=== PATIENT | male | born 1960 | race Caucasian/White ===

== ENCOUNTER 2017-09-06 09:43 | Outpatient (CLI) | payer BC ==
--- NOTE | 2017-09-06 11:38 | CT ---
THORACIC SPINE CT NONCONTRAST: Comparison: 03-25-15 Clinical history: Thoracic radiculopathy. FINDINGS: Re-demonstration of multilevel osteophytes with long segment regions of bridging osteophytosis about the anterior aspect of the anterior vertebral column. No interval compression fracture. Incidental no te of surgical changes of the partially imaged cervical spine. There is no significant subluxation or interval compression deformity. No retropulsion of bone into the vertebral canal. Calcification grey g ligamentum flavum to the right of midline at the T5 level is stable. Incidental note of hepatic steatosis and vascular disease. IMPRESSION: Stable degenerative changes throughout the thoracic spine, without high grade osseous compromise of v ertebral canal or neural foramina. POS: GERARDO
--- NOTE | 2017-09-06 12:23 | MRI ---
THORACIC SPINE MRI: Date: 09-06-17 Comparison: 04-08-15 History: Mid/low back pain radiating to the anterior aspect of the ribs, thoracic radiculopathy. Technique: Multiplanar, multisequence MR imaging of the thoracic spine is provided without contrast. FINDINGS: The sagittal STIR imaging demonstrates no focal area of osseous marrow edema. Limited assessment of the cervical spine demonstrates anterior discectomy and fusion hardware at the C5-6 level. There is multilevel disc space narrowing at C2-3, C3-4, and C4-5, not well evaluated on t his exam. T1-2: There is disc desiccation and disc space narrowing with mild anterior osteophyte formation and mild bilateral facet hypertrophy. No central canal or neural foraminal stenosis. T2-3: Mild disc space narrowing. No central canal or neural foraminal stenosis. T3-4: Disc space narrowing and mild facet hypertrophy with no significant central canal or neural for aminal stenosis. T4-5: Intervertebral disc height and signal intensity appears within normal limits with no significan t central canal or neural foraminal stenosis. T5-6: Intervertebral disc height and signal intensity appears within normal limits. There is a modera te degree of facet hypertrophy present on the right with associated thickening of the ligamentum flav um. No associated central canal or neural foraminal stenosis. T6-7: There is a small central disc protrusion with an associated annular tear. There is partial effa cement of the ventral thecal sac with no significant central canal or neural foraminal stenosis. T7-8: There is mild degenerative endplate change with disc desiccation and disc space narrowing. No c entral canal or neural foraminal stenosis. T8-9: There is facet hypertrophy on the right. Intervertebral disc height and signal intensity is wit hin normal limits. On the basis of osteophyte formation, there is a mild to moderate degree of right neural foraminal stenosis. No significant left neural foraminal stenosis. T9-10: There is a small central disc protrusion with an associated annular tear partially effacing th e ventral thecal sac. There is no significant associated central canal stenosis or neural foraminal s tenosis. T10-11: Mild bilateral facet hypertrophy with no significant central canal or neural foraminal stenos is. T11-12: Anterior osteophyte formation. Mild right neural foraminal stenosis on the basis of facet hyp ertrophy. No central canal or left neural foraminal stenosis. T12-L1: No significant central canal or neural foraminal stenosis. No focal are of abnormal signal intensity is identified within the thoracic cord. IMPRESSION: Scattered areas of degenerative change noted within the thoracic spine as described above. POS: GERARDO
== END 2017-09-06 09:44 | disposition home or self-care (01) ==
LOC: TBSIIMAG 09:43
PROVIDERS: ATTEND Neurological Surgery
DX: M47.24 Other spondylosis with radiculopathy, thoracic region (principal)
CPT/HCPCS: 72128; 72146

== ENCOUNTER 2017-09-26 13:44 | Outpatient (CLI) | payer BC ==
--- NOTE | 2017-09-26 15:36 | EKG ---
Test Reason : Blood Pressure : / mmHG Vent. Rate : 121 BPM Atrial Rate : 121 BPM P-R Int : 138 ms QRS Dur : 112 ms QT Int : 336 ms P-R-T Axes : 038 028 003 degrees QTc Int : 477 ms Sinus tachycardia with Premature atrial complexes RSR' or QR pattern in V1 suggests right ventricular conduction delay Cannot rule out Anterior infarct , age undetermined Abnormal ECG Confirmed by RAJAT HASKINS ([id number]) on 09/26/2017 3:35:53 PM Referred By: CHRISTIANA Confirmed By:RAJAT HASKINS
[2017-09-26 15:38] LABS: Anion Gap 15 mmol/L (10-20); BUN (Urea Nitrogen) 10 mg/dL (8.4-25.7); Calc. Creatinine Clearance 0 mL/min (70-130); Calcium 10.4 mg/dL (7.8-10.44); Carbon Dioxide 25 mmol/L (22-29); Chloride 94 mmol/L (98-107); Estimated GFR-MDRD 89; Glucose 122 mg/dL (70-105); Sodium 131 mmol/L (136-145)
== END 2017-09-26 13:45 | disposition home or self-care (01) ==
LOC: LABBT 13:44
PROVIDERS: ATTEND Neurological Surgery
DX: Z01.818 Encounter for other preprocedural examination (principal); M54.14 Radiculopathy, thoracic region
CPT/HCPCS: 80048; 93005; 93010

== ENCOUNTER 2017-09-28 06:49 | Day surgery (SDC) | payer BC ==
[2017-09-26 14:23] VITALS: BMI 33.3
--- NOTE | 2017-09-27 17:17 | HP ---
HISTORY OF PRESENT ILLNESS: Mr. Christian is a very pleasant 57-year-old man who is known to us from pr ior evaluations of thoracic radiculopathy at the T9-T10 level bilaterally, it causes him a significan t amount of pain, but he has been treated by Dr. Duncan for the last 2 years with great success. Unfortunately, more recently these injections had stopped working and he has been left in situation w here his pain has become so severe that he is experiencing bouts of vomiting because of it. He has n ew MRI and CT that revealed degenerative changes and encroachment of the foramen bilaterally at T9-T1 0, which likely very well fit his symptoms. He hopes to pursue surgical intervention if we believe t hat it is going to be helpful. PAST MEDICAL HISTORY: Significant for gastroesophageal reflux disease, hypertension, anxiety, and pa in. CURRENT MEDICATIONS: Amitriptyline, Dexilant, tramadol, lorazepam, losartan, hydrochlorothiazide, am lodipine, lansoprazole, and clonidine. ALLERGIES: IODINE and MORPHINE. PAST SURGICAL HISTORY: Unspecified back and neck surgeries. ASSESSMENT: Thoracic radiculopathy. PLAN: Dr. Morales met with the patient, reviewed imaging, and advocated for bilateral T9-T10 foraminot omies. He explained to the patient the risks, benefits, and alternatives of the procedure. The lm ent expressed understanding and would like to move forward with surgery as discussed. I do believe t he patient is mentally competent and capable of making medical decisions for himself and we will move forward with surgery as planned.
[2017-09-28] MEDS ORDERED: CEFAZOLIN/Water 2 GM/20 ML SYRINGE ONE (07:13)
[2017-09-28] MEDS ORDERED: Thrombin 5000 UNITS/5 ML VIAL ONE (08:47)
[2017-09-28] MEDS ORDERED: Bupivacaine 0.5% 10 ML VIAL ONE (08:47)
[2017-09-28] MEDS ORDERED: Midazolam HCl 2 mg/2 ml Vial ONE (08:57)
[2017-09-28] MEDS ORDERED: Fentanyl 100 MCG/2 ML VIAL ONE (09:23)
[2017-09-28] MEDS ORDERED: HYDROmorphone 0.5 MG/0.5 ML SYRINGE ONE (10:30)
[2017-09-28] MEDS ORDERED: Tamsulosin HCl 0.4 MG CAP ONE (11:05)
[2017-09-28] MEDS ORDERED: HYDROcodone/Acetaminophen 10/325 mg Tablet ONE (13:05)
[2017-09-28] MEDS ORDERED: HYDROcodone/Acetaminophen 5/325 mg Tablet ONE ×2 (13:08→13:09)
[2017-09-28] MEDS ORDERED: Lidocaine 1% PF 5 ML VIAL ONE (16:25)
[2017-09-28] MEDS ORDERED: Propofol 200 MG/20 ML VIAL ONE (16:25)
[2017-09-28] MEDS ORDERED: Ondansetron HCl/PF 4 MG/2 ML Vial ONE (16:25)
[2017-09-28] MEDS ORDERED: PHENYLEPHRINE-NS 100 MCG/ML 10 ML SYRINGE ONE (16:25)
[2017-09-28] MEDS ORDERED: Dexamethasone 20 MG/5 ML VIAL ONE (16:25)
[2017-09-28] MEDS ORDERED: Ketorolac Tromethamine 30 MG/ML VIAL ONE (16:25)
[2017-09-28] MEDS ORDERED: Glycopyrrolate 0.2 MG/ML 5 ML SYRINGE ONE (16:25)
--- NOTE | 2017-09-30 13:30 | OP ---
DATE OF PROCEDURE: 09/28/2017 SURGEON: Dr. Nick Morales TEST DESIGN ENGINEER: RADHA Dias. INDICATION: Pain. DIAGNOSIS: Thoracic radiculopathy. PROCEDURE: Bilateral T9 and T10 foraminotomies. ANESTHESIA: General. TECHNIQUE: The patient was brought into the operating room and placed under general anesthesia. He was flipped from a supine to prone position on the operating room table. A linear incision was plann ed over the T9 through T10 segments. After prepping and draping and after an appropriate operative p ause, the incision was created. Soft tissues were swept away from midline. Self-retaining retractor s were placed in the wound for optimal exposure. After confirming the appropriate levels with AP C-a rm fluoroscopy, a high-speed cutting drill bit as well as 2, 3 and 4 mm Kerrisons used to perform for aminotomies over the exiting T9 and T10 nerve roots bilaterally. After decompressing these segments, the wound was irrigated. Hemostasis was maintained throughout. The wound was then closed in anatom ic layers and a pressure dressing was applied. There were no known procedural complications.
== END 2017-09-28 13:45 | disposition home or self-care (01) ==
LOC: SDC 06:49
PROVIDERS: ATTEND Neurological Surgery
PROC: 01N80ZZ Release Thoracic Nerve, Open Approach (ICD-10-PCS; principal; 2017-09-28)
DX: M54.14 Radiculopathy, thoracic region (principal); K21.9 Gastro-esophageal reflux disease without esophagitis; I10 Essential (primary) hypertension; F41.9 Anxiety disorder, unspecified; Z79.899 Other long term (current) drug therapy; Z88.5 Allergy status to narcotic agent; Z91.041 Radiographic dye allergy status; Z98.1 Arthrodesis status; Z98.890 Other specified postprocedural states
CPT/HCPCS: 76001; J1100; J1170; J1885; J2001; J2250; J2405; J2704; J3010; J3490

== ENCOUNTER 2018-04-18 10:27 | Outpatient (CLI) | payer OTHER ==
--- NOTE | 2018-04-18 12:43 | CT ---
NONCONTRAST CT THORACIC SPINE: Date: 04/18/18 HISTORY: Thoracic spine pain. History of surgery in October 2017. COMPARISON: 09/06/17. FINDINGS: The visualized lungs are clear. There is diminished attenuation of the visualized liver suggesting di ffuse fatty infiltration, also stable from prior exam. Vascular calcifications seen in thoracic as we ll as upper abdominal aorta. Multilevel osteophytes with long segment regions of bridging osteophytes anteriorly are again seen, p rimarily involving the lower thoracic spine. Vertebral body heights are within normal limits and no f racture or subluxation is identified. Prominent calcification posterolaterally on the right and centr al canal at the level of the T5 vertebral body is again present. There is narrowing of the right neur al foramen at the T8-9 level, primarily related to facet degenerative changes and bony encroachment o n the right neural foramen. Minimal scattered posterior osteophytes are present, but no significant i ntradural or extradural defect is identified, and there is no significant narrowing of the central sp inal canal and the neural foramina, but the remaining levels also demonstrate no significant narrowin g. Paravertebral soft tissues are within normal limits. IMPRESSION: 1. Stable CT scan of the thoracic spine with degenerative changes seen without central canal comprom ise. There is at least mild narrowing involving the right neural foramen at the T8-9 level secondary to bony encroachment. 2. Fatty infiltration of the visualized liver. POS: GERARDO
== END 2018-04-18 10:28 | disposition home or self-care (01) ==
LOC: TBSIIMAG 10:27
PROVIDERS: ATTEND Neurological Surgery
DX: M54.6 Pain in thoracic spine (principal); M47.894 Other spondylosis, thoracic region; M99.82 Other biomechanical lesions of thoracic region; K76.0 Fatty (change of) liver, not elsewhere classified
CPT/HCPCS: 72128

== ENCOUNTER 2018-09-10 01:13 | Emergency (ER) | payer BC ==
[2018-09-10] MEDS ORDERED: Diazepam 5 MG TAB ONE (02:19)
[2018-09-10] MEDS ORDERED: Ketorolac Tromethamine 30 MG/ML VIAL ONE (02:19)
[2018-09-10] MEDS ORDERED: HYDROcodone/Acetaminophen 5/325 mg Tablet ONE (03:03)
== END 2018-09-10 03:34 | disposition home or self-care (01) ==
LOC: ERS 01:13
DX: M54.5 Low back pain (principal); I48.91 Unspecified atrial fibrillation; I10 Essential (primary) hypertension; F41.9 Anxiety disorder, unspecified; Z85.72 Personal history of non-Hodgkin lymphomas; Z87.891 Personal history of nicotine dependence; Z79.899 Other long term (current) drug therapy; X50.0XXA Overexertion from strenuous movement or load, initial encounter
CPT/HCPCS: 96372; J1885

== ENCOUNTER 2018-09-26 10:34 | Outpatient (CLI) | payer BC ==
--- NOTE | 2018-09-26 13:51 | CT ---
CT THORACIC SPINE WITHOUT CONTRAST: HISTORY: Thoracic radiculopathy. COMPARISON: CT thoracic spine from 04/18/2018. FINDINGS: There are flowing anterior osteophytes throughout the thoracic spine with minimal degenerative disk s pace disease, suggesting diffuse idiopathic skeletal hyperostosis. The encroachment upon the right n eural foramen, at T8-T9, due to hypertrophic facet changes, is similar. No acute fracture or malalignment. There is dorsal epidural venous gas at the level of T8-T9, likely from a recent injection. Aortic contour is nonaneurysmal. The visualized lungs are unremarkable. IMPRESSION: 1. Unchanged encroachment of the right T8-T9 neural foramen due to hypertrophic facet changes. 2. Diffuse idiopathic skeletal hyperostosis. 3. No significant interval change from 04/18/2018. 4. No acute fracture or malalignment. POS: [facility]
== END 2018-09-26 10:35 | disposition home or self-care (01) ==
LOC: TBSIIMAG 10:34
PROVIDERS: ATTEND Neurological Surgery
DX: M54.14 Radiculopathy, thoracic region (principal); M85.88 Other specified disorders of bone density and structure, other site
CPT/HCPCS: 72128

== ENCOUNTER 2021-06-11 15:33 | Observation (INO) | payer BC ==
[2021-06-11 16:04] LABS: #Eosinphils 0.1 thou/uL (0.0-0.7); #Lymphocytes 1.3 thou/uL (1.20-3.40); #Monocytes 0.7 thou/uL (0.11-0.59); #Neutrophils 4.6 thou/uL (1.40-6.50); %Basophils 0.3 % (0.0-1.0); %Eosinophils 1.4 % (0.0-10.0); %Lymphocytes 19.3 % (21.0-51.0); %Monocytes 10.9 % (0.0-10.0); %Neutrophils 68.1 % (42.0-75.0); Hemoglobin 17.6 g/dL (14.0-18.0); Mean Corpuscular HGB CONC 34.9 g/dL (32.0-36.0); Mean Corpuscular Hemoglobin 32.5 pg (27.0-31.0); Mean Platelet Volume 6.6 fL (7.4-10.4); Platelet Count 307 thou/uL (130-400); RBC Distribution Width 13.4 % (11.5-14.5); Red Blood Cell (RBC) Count 5.41 mill/uL (4.70-6.10); White Blood Cell (WBC) Count 6.8 thou/uL (4.8-10.8)
[2021-06-11 16:27] LABS: Actual Bicarbonate (HCO3v) 23 mEq/L (22-28); Analyzer IN Cardio ER; Base Excess -2.3 mEq/L (-2.0 to +3.0); Calcium, Ionized (venous) 1.11 mmol/L (1.16-1.32); Chloride (VBG) 88 mmol/L (98-106); Hemoglobin (Hb) 18.1 g/dL (13.1-17.2); Potassium (VBG) 3.46 mmol/L (3.70-5.30); Sodium 124.4 mmol/L (133-146); pH (venous) 7.37 (7.32-7.43)
[2021-06-11 16:31] LABS: ALT (SGPT) 17 U/L (8-55); AST (SGOT) 17 U/L (5-34); Albumin 4.4 g/dL (3.4-4.8); Alkaline Phosphatase 88 U/L (40-110); Anion Gap 14 mmol/L (10-20); BUN (Urea Nitrogen) 19 mg/dL (8.4-25.7); Bilirubin, Total 0.6 mg/dL (0.2-1.2); Calc. Creatinine Clearance 0 mL/min (70-130); Calcium 9.9 mg/dL (7.8-10.44); Carbon Dioxide 27 mmol/L (23-31); Chloride 89 mmol/L (98-107); Globulin 2.8 g/dL (2.4-3.5); Glucose 97 mg/dL (80-115); Potassium 3.7 mmol/L (3.5-5.1); Protein, Total 7.2 g/dL (5.8-8.1); Sodium 126 mmol/L (136-145)
[2021-06-11] MEDS ORDERED: Bisacodyl 10 MG SUPP PR PRN (17:12)
[2021-06-11] MEDS ORDERED: Acetaminophen 325 MG TAB PO PRN (17:12)
[2021-06-11] MEDS ORDERED: Ondansetron PF 4 MG/2 ML Vial IVP PRN (17:12)
[2021-06-11] MEDS ORDERED: Senokot S 8.6-50 MG TAB PO PRN (17:12)
[2021-06-11] MEDS ORDERED: Bisacodyl 5 MG TAB PO PRN (17:12)
[2021-06-11] MEDS ORDERED: Aspirin 81 mg Enteric Coated Tablet PO SCH (17:30)
[2021-06-11] MEDS ORDERED: Atorvastatin Calcium 40 MG TAB PO SCH (21:00)
[2021-06-11] MEDS ORDERED: Amitriptyline HCl 10 MG TAB PO SCH ×2 (21:57→23:17)
[2021-06-11 22:50] LABS: Bacteria/HPF None Seen HPF (None Seen); Bilirubin Negative (Negative); Blood, Urine Negative (Negative); Clarity Clear (Clear); Glucose, Urine (Dipstick) Normal (Negative); Ketone, Urine Negative (Negative); Leukocyte Negative Leu/uL (Negative); Nitrite Negative (Negative); Protein, Urine (Dipstick) Negative (Neg-Trace); RBC/HPF 0-3 HPF (0-3); Specific Gravity, Urine 1.009 (1.002-1.036); Squamous Epithelial None Seen HPF (0-3); Urobilinogen Normal mg/dL (Less than 2); WBC/HPF 0-3 HPF (0-3); pH, Urine 5.5 (5.0-9.0)
[2021-06-11 22:51] VITALS: BMI 30.4
[2021-06-11 22:53] LABS: Urine Culture Reflex No No
[2021-06-11 23:10] LABS: Creatinine, Urine 68.85 mg/dL (63-166)
[2021-06-11 23:34] LABS: SARS-CoV-2 NAA Rapid Test Not Detected (NotDetected)
[2021-06-12 00:16] LABS: Anion Gap 13 mmol/L (10-20); BUN (Urea Nitrogen) 20 mg/dL (8.4-25.7); Calc. Creatinine Clearance 77 mL/min (70-130); Calcium 9.6 mg/dL (7.8-10.44); Carbon Dioxide 24 mmol/L (23-31); Chloride 92 mmol/L (98-107); Glucose 136 mg/dL (80-115); Sodium 126 mmol/L (136-145)
[2021-06-12 00:27] LABS: Potassium 2.9 mmol/L (3.5-5.1)
[2021-06-12] MEDS ORDERED: Potassium Chloride 40 MEQ in Premix Bag 1 BAG IVPB ONE (00:35)
[2021-06-12] MEDS ORDERED: Prevnar 13-Val Conj/PF 0.5 ML SYRINGE IM ONE ×2 (01:00→09:00)
[2021-06-12] MEDS: Potassium Chloride 20 MEQ in Premix Bag 1 BAG IVPB SCH ×2 (01:32→05:23)
[2021-06-12] MEDS ORDERED: Potassium Chloride 20 MEQ TAB PO SCH (04:00)
[2021-06-12 05:35] LABS: #Basophils 0.1 thou/uL (0.0-0.2); #Eosinphils 0.3 thou/uL (0.0-0.7); #Lymphocytes 2.4 thou/uL (1.20-3.40); #Monocytes 1.2 thou/uL (0.11-0.59); #Neutrophils 9.5 thou/uL (1.40-6.50); %Basophils 0.7 % (0.0-1.0); %Eosinophils 2.1 % (0.0-10.0); %Lymphocytes 18.2 % (21.0-51.0); %Monocytes 8.7 % (0.0-10.0); %Neutrophils 70.3 % (42.0-75.0); Hemoglobin 17.3 g/dL (14.0-18.0); Mean Corpuscular HGB CONC 35.9 g/dL (32.0-36.0); Mean Corpuscular Volume 91.8 fL (78.0-98.0); Mean Platelet Volume 6.8 fL (7.4-10.4); Platelet Count 315 thou/uL (130-400); RBC Distribution Width 13.4 % (11.5-14.5); Red Blood Cell (RBC) Count 5.26 mill/uL (4.70-6.10); White Blood Cell (WBC) Count 13.4 thou/uL (4.8-10.8)
[2021-06-12 05:43] LABS: Hemoglobin A1c 5.1 % (4.0-6.0)
[2021-06-12 06:00] LABS: Phosphorus 3.5 mg/dL (2.3-4.7)
[2021-06-12 06:02] LABS: ALT (SGPT) 17 U/L (8-55); AST (SGOT) 21 U/L (5-34); Albumin 4.5 g/dL (3.4-4.8); Alkaline Phosphatase 86 U/L (40-110); Anion Gap 18 mmol/L (10-20); BUN (Urea Nitrogen) 18 mg/dL (8.4-25.7); Bilirubin, Total 0.7 mg/dL (0.2-1.2); Calc. Creatinine Clearance 87 mL/min (70-130); Calcium 10.1 mg/dL (7.8-10.44); Carbon Dioxide 25 mmol/L (23-31); Chloride 90 mmol/L (98-107); Cholesterol 202 mg/dl (< 200 Desired); Globulin 2.8 g/dL (2.4-3.5); Glucose 109 mg/dL (80-115); HDL Cholesterol 51 mg/dL (>60 Neg Risk); LDL Cholesterol, Calculated 120 mg/dL; Magnesium 1.6 mg/dL (1.6-2.6); Potassium 3.9 mmol/L (3.5-5.1); Protein, Total 7.3 g/dL (5.8-8.1); Sodium 129 mmol/L (136-145); Triglycerides 156 mg/dL (Less than 150)
[2021-06-12 06:08] LABS: INR-International Normal Ratio 0.9; PTT 29.5 sec (22.9-36.1); Prothrombin Time 12.7 sec (12.0-14.7)
[2021-06-12 06:19] LABS: Free T4 (Free Thyroxine) 1.13 ng/dL (0.70-1.48); Thyroid Stimulating Hormone 2.3056 uIU/mL (0.35-4.94)
[2021-06-12] MEDS ORDERED: traMADol HCl 50 MG TAB PO PRN ×2 (07:07→07:19)
[2021-06-12] MEDS ORDERED: Lorazepam 2 MG/ML VIAL SLOW IVP PRN (08:24)
[2021-06-12] MEDS ORDERED: Aspirin 81 mg Enteric Coated Tablet PO SCH (09:00)
[2021-06-12] MEDS ORDERED: Losartan 25 MG TAB PO SCH (09:00)
[2021-06-12] MEDS ORDERED: Non-Formulary Item 1 EACH (Levothyroxine Sodium [Levothyroxine] 25 MCG Capsule) PO SCH (09:00)
[2021-06-12] MEDS ORDERED: FLU VACC QS2021-22(6MOS UP)/PF 60 MCG/0.5 ML SYRINGE IM ONE (09:00)
[2021-06-12] MEDS ORDERED: Clopidogrel Bisulfate 75 MG TAB PO SCH ×2 (12:00→17:15)
[2021-06-12 15:54] VITALS: BP 125/79; TEMP 97.8
[2021-06-12] MEDS ORDERED: DEXLANSOPRAZOLE PO SCH (21:00)
[2021-06-12] MEDS ORDERED: Amitriptyline HCl 10 MG TAB PO SCH ×2 (21:00)
[2021-06-13] MEDS ORDERED: Levothyroxine Sodium 25 MCG TAB PO SCH (06:00)
[2021-06-13] MEDS ORDERED: Clopidogrel Bisulfate 75 MG TAB PO SCH (09:00)
== END 2021-06-12 18:42 | disposition home or self-care (01) ==
LOC: ERS 15:33 → SUATTDRO 15:33 → NEURO 17:05
PROVIDERS: ADMIT Family Medicine; ATTEND Family Medicine
DX: G45.9 Transient cerebral ischemic attack, unspecified (principal); I69.351 Hemiplegia and hemiparesis following cerebral infarction affecting right dominant side; I48.0 Paroxysmal atrial fibrillation; I10 Essential (primary) hypertension; C85.95 Non-Hodgkin lymphoma, unspecified, lymph nodes of inguinal region and lower limb; E87.1 Hypo-osmolality and hyponatremia; F10.10 Alcohol abuse, uncomplicated; J30.2 Other seasonal allergic rhinitis; K21.9 Gastro-esophageal reflux disease without esophagitis; N17.9 Acute kidney failure, unspecified; I07.1 Rheumatic tricuspid insufficiency; E03.9 Hypothyroidism, unspecified; F41.9 Anxiety disorder, unspecified; G89.29 Other chronic pain; Z20.822 Contact with and (suspected) exposure to COVID-19; Z98.890 Other specified postprocedural states; Z79.891 Long term (current) use of opiate analgesic; Z79.899 Other long term (current) drug therapy; Z88.5 Allergy status to narcotic agent; Z91.041 Radiographic dye allergy status; Z79.82 Long term (current) use of aspirin; Z87.891 Personal history of nicotine dependence; Z98.1 Arthrodesis status
CPT/HCPCS: 36415; 70450; 70551; 71045; 76700; 80053; 80061; 81001; 82570; 82805; 83036; 83735; 83880; 84100; 84300; 84439; 84443; 84484; 84540; 84550; 85025; 85610; 85730; 86850; 86900; 86901; 90471; 90670; 90686; 93005; 93306; 93880; 96365; 96375; G0008; G0009; G0378; J2060; J3480; U0002

== ENCOUNTER 2021-09-14 16:24 | Emergency (ER) | payer BC | END 2021-09-14 17:04 | disposition left against medical advice (07) | LOC: ERS 16:24 | DX: Z53.21 Procedure and treatment not carried out due to patient leaving prior to being seen by health care provider (principal) ==

== ENCOUNTER → 2024-06-18 | Day surgery (SDC) | payer BC ==
[2024-06-15 10:29] VITALS: BMI 30.2
[~2024-06-18] MED LIST: Fentanyl 250 MCG/5 ML VIAL ONE; Iopamidol 15 ML ONE; Iopamidol-M 300 61% 15 ML VIAL ONE; Midazolam HCl 2 mg/2 ml Vial ONE; Propofol 1,000 MG/100 ML VIAL IV ONE; SUGAMMADEX SODIUM 200 MG/2 ML VIAL ONE; Sodium Bicarbonate 2.5 MEQ/5 ML SDV ONE; fentaNYL 50 mcg/mL 1 mL Vial ONE; fentaNYL PF 100 MCG/2 ML SYRINGE ONE
[2024-06-18 12:54] LABS: #Basophils Less than 0.03 10x3/uL (0.0-0.2); #Eosinophils Less than 0.03 10x3/uL (0.0-0.7); %Basophils 0.3 % (0.0-1.0); %Eosinophils 0.2 % (0.0-10.0); %Lymphocytes 15.4 % (21.0-51.0); %Monocytes 1.4 % (0.0-10.0); Hematocrit 40.2 % (42.0-52.0); Hemoglobin 13.5 g/dL (14.0-18.0); Mean Corpuscular HGB CONC 33.6 g/dL (32.0-36.0); Mean Corpuscular Hemoglobin 29.3 pg (27.0-31.0); Mean Corpuscular Volume 87.2 fL (78.0-98.0); Platelet Count 297 10x3/uL (130-400); RBC Distribution Width 13.2 % (11.5-14.5); Red Blood Cell (RBC) Count 4.61 mill/uL (4.70-6.10)
[2024-06-18 13:15] LABS: Anion Gap 18 mmol/L (10-20); BUN (Urea Nitrogen) 7 mg/dL (8.4-25.7); Calc. Creatinine Clearance 118 mL/min (70-130); Calcium 9.2 mg/dL (7.8-10.44); Carbon Dioxide 18 mmol/L (23-31); Chloride 99 mmol/L (98-107); Estimated GFR 89; Glucose 139 mg/dL (80-115); Potassium 4.1 mmol/L (3.5-5.1); Sodium 131 mmol/L (136-145)
== END ==
LOC: RAD 11:17
PROVIDERS: ATTEND Neurological Surgery
DX: M54.12 Radiculopathy, cervical region (principal); M54.14 Radiculopathy, thoracic region
CPT/HCPCS: 62302; 62303; 72126; 72129; 77012; 80048; 85025; 93005; 93010; J2250; J2704; J3010; Q9967